=== PATIENT | male | born 1945 | race Native Hawaiian/Other Pacific Islander ===

== ENCOUNTER 2016-12-22 08:11 | Outpatient (CLI) | payer OTHER ==
[~2016-12-22 08:11] MED LIST: ALBUAER5 INH; ASA LOW DOSE81 MG PO; BENICAR HCT1 TAB PO; HUMIRA PE1 SC; KP FOLIC ACID800 MCG OR; LEVAQUIN500 MG OR; LIPITOR20 MG PO; METO25TA2; METO25TA2 OR; PULMICORT90 MCG IN; RHEUMATREX2.5 MG PO; SINGULAIR10 MG PO
[2016-12-22 08:43] LABS: PLATELET COUNT 159 K/uL (142-355)
[2016-12-22 09:10] LABS: POTASSIUM 4.1 mmol/L (3.6-5.2)
== END 2016-12-22 18:58 | disposition home or self-care (01) ==
LOC: LABW 08:11
PROVIDERS: Internal Medicine
DX: E11.9 Type 2 diabetes mellitus without complications (principal)
CPT/HCPCS: 36415; 80053; 80061; 81000; 82043; 82570; 83036; 84439; 84443; 85027

== ENCOUNTER 2017-02-07 08:52 | Outpatient (CLI) | payer OTHER | END 2017-02-07 19:10 | disposition home or self-care (01) | LOC: LABW 08:52 | PROVIDERS: Internal Medicine Cardiovascular Disease | DX: E78.4 Other hyperlipidemia (principal) | CPT/HCPCS: 36415; 80061 ==

== ENCOUNTER 2017-05-05 14:43 | Outpatient (CLI) | payer OTHER ==
[2017-05-05 15:03] LABS: PLATELET COUNT 153 K/uL (142-355)
[2017-05-05 15:33] LABS: POTASSIUM 4.2 mmol/L (3.6-5.2)
== END 2017-05-05 17:57 | disposition home or self-care (01) ==
LOC: LABW 14:43
PROVIDERS: Internal Medicine Rheumatology
DX: M06.89 Other specified rheumatoid arthritis, multiple sites (principal); Z79.899 Other long term (current) drug therapy; Z51.81 Encounter for therapeutic drug level monitoring; Z11.1 Encounter for screening for respiratory tuberculosis
CPT/HCPCS: 36415; 80053; 85027; 86140

== ENCOUNTER 2017-06-17 10:35 | Emergency (ER) | payer OTHER ==
[~2017-06-17] VITALS: Ht 185.4 cm; Wt 106.6 kg
[2017-06-17 11:35] LABS: PLATELET COUNT 157 K/uL (142-355)
[2017-06-17 12:02] LABS: POTASSIUM 3.9 mmol/L (3.6-5.2)
[2017-06-17 13:59] VITALS: BP 141/74; TEMP 98.1
== END 2017-06-17 14:00 | disposition home or self-care (01) ==
LOC: ED 10:35
DX: L03.115 Cellulitis of right lower limb (principal); M19.071 Primary osteoarthritis, right ankle and foot
CPT/HCPCS: 36415; 80053; 85027; 85651; 96365; 96375; 99284; J0696; J2405

== ENCOUNTER 2017-08-10 11:01 | Outpatient (CLI) | payer OTHER | END 2017-08-10 21:16 | disposition home or self-care (01) | LOC: LABW 11:01 | DX: I10 Essential (primary) hypertension (principal) | CPT/HCPCS: 36415; 80076 ==

== ENCOUNTER 2018-01-24 10:33 | Outpatient (CLI) | payer OTHER ==
[2018-01-24 10:46] LABS: PLATELET COUNT 134 K/uL (142-355)
[2018-01-24 11:38] LABS: POTASSIUM 3.8 mmol/L (3.6-5.2)
== END 2018-01-24 22:55 | disposition home or self-care (01) ==
LOC: LABW 10:33
PROVIDERS: Internal Medicine Rheumatology
DX: M06.89 Other specified rheumatoid arthritis, multiple sites (principal); Z79.899 Other long term (current) drug therapy; Z51.81 Encounter for therapeutic drug level monitoring
CPT/HCPCS: 36415; 80053; 85027; 86140

== ENCOUNTER 2018-01-31 06:41 | Outpatient (CLI) | payer OTHER ==
[2018-01-31 07:01] LABS: PLATELET COUNT 156 K/uL (142-355)
[2018-01-31 07:22] LABS: POTASSIUM 3.8 mmol/L (3.6-5.2)
== END 2018-01-31 22:52 | disposition home or self-care (01) ==
LOC: LABW 06:41
PROVIDERS: Internal Medicine
DX: E11.41 Type 2 diabetes mellitus with diabetic mononeuropathy (principal)
CPT/HCPCS: 36415; 80053; 80061; 81000; 82043; 82570; 83036; 84443; 85027

== ENCOUNTER 2018-02-09 12:38 | Outpatient (CLI) | payer OTHER | END 2018-02-09 19:33 | disposition home or self-care (01) | LOC: LABW 12:38 | DX: M05.672 Rheumatoid arthritis of left ankle and foot with involvement of other organs and systems (principal); M10.071 Idiopathic gout, right ankle and foot | CPT/HCPCS: 36415; 84550; 85651; 86140 ==

== ENCOUNTER 2018-03-01 14:09 | Outpatient (CLI) | payer OTHER | END 2018-03-01 21:42 | disposition home or self-care (01) | LOC: LABW 14:09 | DX: M10.071 Idiopathic gout, right ankle and foot (principal) | CPT/HCPCS: 36415; 84550 ==

== ENCOUNTER 2018-04-04 13:17 | Outpatient (CLI) | payer OTHER | END 2018-04-04 22:25 | disposition home or self-care (01) | LOC: LABW 13:17 | DX: M10.071 Idiopathic gout, right ankle and foot (principal) | CPT/HCPCS: 36415; 84550 ==

== ENCOUNTER 2018-07-04 08:32 | Outpatient (CLI) | payer OTHER ==
[2018-07-04 08:54] LABS: PLATELET COUNT 150 K/uL (142-355)
== END 2018-07-04 23:28 | disposition home or self-care (01) ==
LOC: LABW 08:32
PROVIDERS: Internal Medicine
DX: Z00.00 Encounter for general adult medical examination without abnormal findings (principal); I10 Essential (primary) hypertension; Z79.899 Other long term (current) drug therapy; Z12.5 Encounter for screening for malignant neoplasm of prostate; R97.20 Elevated prostate specific antigen [PSA]
CPT/HCPCS: 36415; 80053; 80061; 81000; 83036; 84153; 84439; 84443; 85027

== ENCOUNTER 2018-07-18 08:39 | Outpatient (CLI) | payer OTHER | END 2018-07-18 22:25 | disposition home or self-care (01) | LOC: US 08:39 | DX: Z13.6 Encounter for screening for cardiovascular disorders (principal) ==

== ENCOUNTER 2018-08-14 10:43 | Outpatient (CLI) | payer OTHER | END 2018-08-14 19:19 | disposition home or self-care (01) | LOC: RAD 10:43 | DX: M25.552 Pain in left hip (principal); M54.5 Low back pain ==

== ENCOUNTER 2019-04-18 07:45 | Outpatient (CLI) | payer OTHER ==
[2019-04-18 08:46] LABS: POTASSIUM 3.8 mmol/L (3.6-5.2)
== END 2019-04-18 23:31 | disposition home or self-care (01) ==
LOC: RESP 07:45
PROVIDERS: Internal Medicine Cardiovascular Disease
DX: I48.91 Unspecified atrial fibrillation (principal); Z79.899 Other long term (current) drug therapy
CPT/HCPCS: 36415; 80048; 83880; 93306

== ENCOUNTER 2019-05-18 12:41 | Outpatient (CLI) | payer OTHER ==
[2019-05-18 13:06] LABS: PLATELET COUNT 182 K/uL (142-355)
[2019-05-18 13:47] LABS: POTASSIUM 4.1 mmol/L (3.6-5.2)
== END 2019-05-18 23:49 | disposition home or self-care (01) ==
LOC: LABW 12:41
PROVIDERS: Internal Medicine Rheumatology
DX: Z79.899 Other long term (current) drug therapy (principal); M06.89 Other specified rheumatoid arthritis, multiple sites
CPT/HCPCS: 36415; 80053; 85027; 86140

== ENCOUNTER 2019-05-22 11:52 | Outpatient (CLI) | payer OTHER | END 2019-05-22 22:33 | disposition home or self-care (01) | LOC: RAD 11:52 | DX: J42 Unspecified chronic bronchitis (principal) ==

== ENCOUNTER 2019-05-23 07:03 | Outpatient (CLI) | payer OTHER ==
[2019-05-23 07:27] LABS: PLATELET COUNT 249 K/uL (142-355)
[2019-05-23 08:33] LABS: POTASSIUM 3.6 mmol/L (3.6-5.2)
== END 2019-05-23 23:34 | disposition home or self-care (01) ==
LOC: LABW 07:03
PROVIDERS: Internal Medicine
DX: E11.9 Type 2 diabetes mellitus without complications (principal); E03.9 Hypothyroidism, unspecified
CPT/HCPCS: 36415; 80053; 81000; 82043; 82570; 83036; 84439; 84443; 85027

== ENCOUNTER 2019-09-04 10:55 | Outpatient (CLI) | payer OTHER ==
[2019-09-04 11:16] LABS: PLATELET COUNT 165 K/uL (142-355)
[2019-09-04 11:30] LABS: POTASSIUM 4.1 mmol/L (3.6-5.2)
== END 2019-09-04 20:25 | disposition home or self-care (01) ==
LOC: LABW 10:55
PROVIDERS: Internal Medicine Rheumatology
DX: Z79.899 Other long term (current) drug therapy (principal); M06.89 Other specified rheumatoid arthritis, multiple sites
CPT/HCPCS: 36415; 80053; 85027; 86140

== ENCOUNTER 2020-06-11 14:31 | Emergency (ER) | payer OTHER ==
[2020-06-11] VITALS (17 sets, daily range): BP systolic 68–127; BP diastolic 23–61; TEMP 97.7–103.5
[~2020-06-11] VITALS: Ht 185.4 cm; Wt 105.7 kg
[2020-06-11 15:17] LABS: POTASSIUM 4.1 mmol/L (3.6-5.2)
[2020-06-11 15:39] LABS: PLATELET COUNT 28 K/uL (142-355)
== END 2020-06-11 22:29 | disposition short-term general hospital (02) ==
LOC: ED 14:31 → MED/SURG 18:00 → ED 18:00
PROVIDERS: Emergency Medicine
DX: R50.9 Fever, unspecified (principal); J18.9 Pneumonia, unspecified organism; Z20.828 Contact with and (suspected) exposure to other viral communicable diseases
CPT/HCPCS: 80053; 81000; 83605; 85007; 85027; 85379; 87040; 87205; 87502; 87635; 87651; 93005; 96365; 99284; J1265; U0003